=== PATIENT | male | born 1960 | race Caucasian/White ===

== ENCOUNTER 2018-01-27 06:10 | Day surgery (SDC) | payer OTHER ==
[~2018-01-27] VITALS: Ht 198.1 cm; Wt 105.4 kg
[~2018-01-27 06:10] MED LIST: AMIT75 PO; ASPI325 PO; ASPI81CH PO; ATOR20 PO; ATOR40TA PO; BISA5EC PO; CHLO25B PO; CLOP75 PO; FISH1000 PO; GLIP5 PO; LAVAP17G PO; LISI20 PO; LISI5 PO; LISINOPRIL PO; METF500 PO; METF850 PO; METO10 PO; METO100ER PO; NITR.4SL SL; RANI150 PO; ROSU10TA PO; [UNRECOGNIZED DRUG - CODE]
== END 2018-01-27 12:30 | disposition home or self-care (01) ==
LOC: ORSCSDS 06:10
PROVIDERS: Orthopaedic Surgery
PROC: 0RBK4ZZ Excision of Left Shoulder Joint, Percutaneous Endoscopic Approach (ICD-10-PCS; principal; 2018-01-27 07:30)
PROC: 0RNK4ZZ Release Left Shoulder Joint, Percutaneous Endoscopic Approach (ICD-10-PCS; principal; 2018-01-27 07:30)
PROC: 0LQ24ZZ Repair Left Shoulder Tendon, Percutaneous Endoscopic Approach (ICD-10-PCS; principal; 2018-01-27 07:30)
DX: M75.32 Calcific tendinitis of left shoulder (principal); M75.42 Impingement syndrome of left shoulder; M75.02 Adhesive capsulitis of left shoulder; I10 Essential (primary) hypertension; E11.9 Type 2 diabetes mellitus without complications; G47.33 Obstructive sleep apnea (adult) (pediatric); I25.10 Atherosclerotic heart disease of native coronary artery without angina pectoris; I25.2 Old myocardial infarction; E66.01 Morbid (severe) obesity due to excess calories; Z68.37 Body mass index [BMI] 37.0-37.9, adult; Z79.899 Other long term (current) drug therapy
CPT/HCPCS: 82947; C1713; J0171; J0690; J1100; J1885; J2250; J2370; J2405; J2710; J3010; J7120

== ENCOUNTER 2020-05-02 11:41 | Day surgery (SDC) | payer BC ==
[~2020-05-02] VITALS: Ht 167.6 cm; Wt 104.1 kg
[2020-05-02] MEDS ORDERED: OMEP20ER PO (12:15)
[2020-05-02] MEDS ORDERED: Aspir 8181 MG PO (12:15)
[2020-05-02] MEDS ORDERED: BYDUREON B2 MG/0.81 SC (12:16)
== END 2020-05-03 13:46 | disposition home or self-care (01) ==
LOC: ORSCSDS 11:41
PROC: 0DJD8ZZ Inspection of Lower Intestinal Tract, Via Natural or Artificial Opening Endoscopic (ICD-10-PCS; principal; 2020-05-03)
DX: Z12.11 Encounter for screening for malignant neoplasm of colon (principal); K57.30 Diverticulosis of large intestine without perforation or abscess without bleeding; I25.10 Atherosclerotic heart disease of native coronary artery without angina pectoris; E66.01 Morbid (severe) obesity due to excess calories; Z68.38 Body mass index [BMI] 38.0-38.9, adult; E11.9 Type 2 diabetes mellitus without complications; I10 Essential (primary) hypertension; G47.33 Obstructive sleep apnea (adult) (pediatric); E66.9 Obesity, unspecified; Z68.37 Body mass index [BMI] 37.0-37.9, adult; Z87.891 Personal history of nicotine dependence; Z79.82 Long term (current) use of aspirin; Z79.84 Long term (current) use of oral hypoglycemic drugs; Z79.899 Other long term (current) drug therapy
CPT/HCPCS: 82947; 86803; J2704; J7120

== ENCOUNTER → 2024-10-24 | Outpatient (CLI) | payer MEDICARE ==
[~2024-10-24] MED LIST changes: +Aspir 8181 MG PO; +BYDUREON B2 MG/0.81 SC; +LABE200 PO; +OMEP20ER PO; +TRULICITY1.5 MG/0.1 SC
[2024-10-29 00:25] LABS: ALDOSTERONE, URINE 7.2 ug/d (1.2-28.1)
== END | disposition home or self-care (01) ==
LOC: LAB 07:42 → LAB SHORT 07:42
PROVIDERS: Internal Medicine Endocrinology, Diabetes & Metabolism
DX: E26.9 Hyperaldosteronism, unspecified (principal)
CPT/HCPCS: 82088; 82570; 84300

== ENCOUNTER 2024-10-31 18:37 | Observation (INO) | payer MEDICARE ==
[~2024-10-31] VITALS: Ht 167.6 cm; Wt 95.9 kg
[~2024-10-31 18:37] MED LIST changes: -LABE200 PO; -TRULICITY1.5 MG/0.1 SC
[2024-10-31 19:06] LABS: BASOPHILS ABSOLUTE AUTO 0.02 K/mm3 (0.00-0.23); BASOPHILS PERCENT AUTO 0 % (0-2); EOSINOPHILS ABSOLUTE AUTO 0.12 K/mm3 (0.00-0.68); EOSINOPHILS PERCENT AUTO 2 % (0-6); Hemoglobin 13.8 g/dL (13.5-17.5); IMMATURE GRAN ABSOLUTE AUTO 0.01 K/mm3 (0.00-0.10); IMMATURE GRAN PERCENT AUTO 0 % (0-1); LYMPHOCYTES ABSOLUTE AUTO 2.13 K/mm3 (0.84-5.20); LYMPHOCYTES PERCENT AUTO 33 % (21-46); MONOCYTES ABSOLUTE AUTO 0.38 K/mm3 (0.16-1.47); MONOCYTES PERCENT AUTO 6 % (4-13); Mean Corpuscular HGB 28.3 pg (26.0-34.0); Mean Corpuscular HGB Conc 33.7 g/dL (31.5-36.5); Mean Corpuscular Volume 84 fL (80-100); NEUTROPHILS ABSOLUTE AUTO 3.82 K/mm3 (1.96-9.15); NEUTROPHILS PERCENT AUTO 59 % (41-73); Platelet Count 214 K/mm3 (150-400); RDW Coefficient Variation 12.5 % (11.7-14.2); RDW Standard Deviation 38.1 fL (35.1-46.3); Red Blood Cell Count 4.88 M/mm3 (4.30-5.90); White Blood Cell Count 6.48 K/mm3 (4.00-11.30)
[2024-10-31 19:29] LABS: Albumin, Blood 3.5 g/dL (3.4-5.0); Bilirubin, Total 1.1 mg/dL (0.1-1.0); Bun/Creatinine Ratio 15.6 (12.0-20.0); Calcium, Blood 9.3 mg/dL (8.5-10.1); Creatinine, Blood 0.9 mg/dL (0.60-1.20); Globulin, Blood 3.5 g/dL (2.2-4.0)
[2024-10-31] MEDS ORDERED: FLU VACC TS2024-25(6MOS UP)/PF 45 MCG/0.5 ML SYRINGE IM ONE (23:50)
[2024-10-31] MEDS ORDERED: Aspirin 325 MG Tab PO ONE (23:55)
[2024-10-31] MEDS ORDERED: Clopidogrel Bisulfate 300 MG Cap PO ONE (23:55)
[2024-11-01] VITALS (8 sets, daily range): BP systolic 148–168; BP diastolic 79–100
[2024-11-01] MEDS ORDERED: Lactated Ringer's 1,000 ML IV SCH (00:15)
[2024-11-01 00:44] LABS: CHOL/HDL RATIO 3.2; Cholesterol 121 mg/dL (50-200); HDL Cholesterol 38 mg/dL (>39); LDL/HDL RATIO 1.5; Low Density Lipoprotein Chol 56 mg/dL (0-110); Triglycerides 137 mg/dL (30-160); Very Low Density Lipoprot Chol 27 mg/dL (6-32)
[2024-11-01] MEDS ORDERED: Heparin Sodium,Porcine/0.5 NS 500 ML IV SCH (01:25)
[2024-11-01] MEDS ORDERED: Heparin Sodium 5000 Units/ML 1ML MDV IV ONE (01:25)
[2024-11-01 01:27] LABS: Anti-Xa UFH, PHA Monitoring <0.10 IU/mL
[2024-11-01] MEDS ORDERED: Nitroglycerin 0.4 MG SUBL SL PRN (03:50)
[2024-11-01 04:40] LABS: BASOPHILS ABSOLUTE AUTO 0.02 K/mm3 (0.00-0.23); BASOPHILS PERCENT AUTO 0 % (0-2); EOSINOPHILS ABSOLUTE AUTO 0.12 K/mm3 (0.00-0.68); EOSINOPHILS PERCENT AUTO 2 % (0-6); Hematocrit 42.4 % (37.0-53.0); Hemoglobin 14.4 g/dL (13.5-17.5); IMMATURE GRAN ABSOLUTE AUTO 0.02 K/mm3 (0.00-0.10); IMMATURE GRAN PERCENT AUTO 0 % (0-1); LYMPHOCYTES ABSOLUTE AUTO 2.62 K/mm3 (0.84-5.20); LYMPHOCYTES PERCENT AUTO 32 % (21-46); MONOCYTES ABSOLUTE AUTO 0.52 K/mm3 (0.16-1.47); MONOCYTES PERCENT AUTO 6 % (4-13); Mean Corpuscular Volume 83 fL (80-100); Mean Platelet Volume 9.3 fL (9.1-12.4); NEUTROPHILS ABSOLUTE AUTO 4.79 K/mm3 (1.96-9.15); NEUTROPHILS PERCENT AUTO 59 % (41-73); Platelet Count 226 K/mm3 (150-400); RDW Coefficient Variation 12.3 % (11.7-14.2); RDW Standard Deviation 37.2 fL (35.1-46.3); Red Blood Cell Count 5.14 M/mm3 (4.30-5.90); White Blood Cell Count 8.09 K/mm3 (4.00-11.30)
[2024-11-01 05:06] LABS: Albumin, Blood 3.8 g/dL (3.4-5.0); Albumin/Globulin Ratio 1.2 (0.8-1.8); Bilirubin, Total 1.5 mg/dL (0.1-1.0); Bun/Creatinine Ratio 11.2 (12.0-20.0); Calcium, Blood 9.4 mg/dL (8.5-10.1); Creatinine, Blood 0.89 mg/dL (0.60-1.20); Globulin, Blood 3.3 g/dL (2.2-4.0); Potassium, Blood 3.6 mmol/L (3.5-5.5); Total Protein, Blood 7.1 g/dL (6.4-8.2)
[2024-11-01] MEDS ORDERED: Insulin Regular 100 UNIT/ML 10ML Vial SC SCH ×2 (06:00→11:30)
[2024-11-01] MEDS ORDERED: FentaNYL Citrate 50 MCG/ML 2 ML Injection ONE (08:18)
[2024-11-01] MEDS ORDERED: Tirofiban HCL Monohydrate 3.75 MG/15 ML Vial ONE (08:18)
[2024-11-01] MEDS ORDERED: NS 1,000 ML IV ONE ×3 (08:18→10:32)
[2024-11-01] MEDS ORDERED: Midazolam HCl 1MG / ML 2ML Vial ONE (08:18)
--- NOTE | 2024-11-01 08:48 | NUR ---
PCU ADMIT / GONE TO RECORDS AND INFORMATION MANAGER PT BROUGHT TO PCU-3 BY DION FROM ER @ 0826 W/ HEPARIN GTT INFUSING PER ORDERS. PT A&O X4, ABLE TO STAND & INDEPENDENTLY AMBULATE FROM [facility] TO PCU BED. TELEMETRY PLACED & PT AMBULATED TO BATHROOM. PT DENIES HAVING EATIN ANYTHING SINCE LAST NIGHT. [facility] STAFF TO TO TAKE PT TO RECORDS AND INFORMATION MANAGER. HEPARIN GTT PLACED ON STANDBY BY HC STAFF. PHARMACY NOTIFIED. PT PLACED IN GOWN & TAKEN TO RECORDS AND INFORMATION MANAGER IN PCU BED @ 0879.
[2024-11-01] MEDS ORDERED: Atorvastatin 40 MG Tab PO SCH (09:00)
[2024-11-01] MEDS ORDERED: Aspirin 81 MG Chew PO SCH (09:00)
[2024-11-01] MEDS ORDERED: Lisinopril 20 MG Tab PO SCH (09:00)
[2024-11-01] MEDS ORDERED: Metoprolol Succinate 50 MG TABCR PO SCH (09:00)
[2024-11-01] MEDS ORDERED: Clopidogrel Bisulfate 75 MG Tab PO SCH (09:00)
[2024-11-01] MEDS ORDERED: Labetalol HCL 5 MG/ML 4ML Injection (Single Dose) ONE (09:03)
[2024-11-01] MEDS ORDERED: Heparin Sodium 1000 Units/ML 10ML MDV ONE ×2 (09:17→10:32)
[2024-11-01] MEDS ORDERED: Clopidogrel Bisulfate 300 MG Cap ONE (10:13)
[2024-11-01] MEDS ORDERED: NS 1,000 ML IV SCH (10:25)
[2024-11-01] MEDS ORDERED: NS 250 ML IV ONE (10:32)
[2024-11-01] MEDS ORDERED: Verapamil HCL 2.5 MG/ML 2ML Injection ONE (10:32)
[2024-11-01] MEDS ORDERED: Nitroglycerin 2 MG/20 ML BTL ONE (10:33)
--- NOTE | 2024-11-01 10:45 | NUR ---
BACK FROM APPLICATION DEVELOPMENT CONSULTANT PT BACK TO RM AFTER ANGIOGRAM. R RADIAL ACCESS SITE W/ TRB & ARM BOARD IN PLACE. SITE WNL. PT A&O X4. VSS. SPO2 > 92% ON RA. MONITOR SHOWING SR, HR 60s. HEPARIN GTT DCd.
[2024-11-01] MEDS ORDERED: TRULICITY1.5 MG/0.1 SC (11:15)
--- NOTE | 2024-11-01 13:14 | NUR ---
1040-TRANSFER OF CARE NOTE. PT TRANSFERED FROM [facility] TO PCU 3 AT 1040. PT AWAKE AND ALERT, DENIES COMPLAINTS S/P CORONARY ANGIOGRAM WITH INTERVENTION. BEDSIDE REPORT GIVEN. TR SEMAJ SITE REVIEWED W PRIMARY RN, SITE WNL.
--- NOTE | 2024-11-01 18:58 | NUR ---
END OF SHIFT PT A&O X4. VSS. SPO2 > 92% ON RA. MONITOR SHOWING NSR. R RADIAL ACCESS SITE TRB RECOVERED WNL. TRANSPARENT DRESSING & ARM BOARD IN PLACE.
[2024-11-01] MEDS ORDERED: Acetaminophen 325 MG TABLET PO ONE (19:35)
[2024-11-01] MEDS ORDERED: Labetalol HCL 100 MG TAB PO SCH (21:00)
[2024-11-02 00:29] VITALS: BP 162/99
[2024-11-02 04:00] VITALS: BP 131/71
[2024-11-02 05:20] LABS: BASOPHILS ABSOLUTE AUTO 0.02 K/mm3 (0.00-0.23); BASOPHILS PERCENT AUTO 0 % (0-2); EOSINOPHILS ABSOLUTE AUTO 0.09 K/mm3 (0.00-0.68); EOSINOPHILS PERCENT AUTO 2 % (0-6); Hematocrit 37.7 % (37.0-53.0); Hemoglobin 12.7 g/dL (13.5-17.5); IMMATURE GRAN ABSOLUTE AUTO 0.01 K/mm3 (0.00-0.10); IMMATURE GRAN PERCENT AUTO 0 % (0-1); LYMPHOCYTES ABSOLUTE AUTO 1.86 K/mm3 (0.84-5.20); LYMPHOCYTES PERCENT AUTO 31 % (21-46); MONOCYTES ABSOLUTE AUTO 0.46 K/mm3 (0.16-1.47); MONOCYTES PERCENT AUTO 8 % (4-13); Mean Corpuscular HGB Conc 33.7 g/dL (31.5-36.5); Mean Corpuscular Volume 83 fL (80-100); Mean Platelet Volume 9.5 fL (9.1-12.4); NEUTROPHILS PERCENT AUTO 60 % (41-73); Platelet Count 180 K/mm3 (150-400); RDW Coefficient Variation 12.6 % (11.7-14.2); RDW Standard Deviation 38.1 fL (35.1-46.3); Red Blood Cell Count 4.53 M/mm3 (4.30-5.90); White Blood Cell Count 6.04 K/mm3 (4.00-11.30)
[2024-11-02 05:43] LABS: Bun/Creatinine Ratio 13.9 (12.0-20.0); Calcium, Blood 8.9 mg/dL (8.5-10.1); Creatinine, Blood 0.93 mg/dL (0.60-1.20); Potassium, Blood 3.5 mmol/L (3.5-5.5)
[2024-11-02 07:27] VITALS: BP 155/87
[2024-11-02] MEDS ORDERED: Labetalol HCL 100 MG TAB PO SCH (09:00)
[2024-11-02] MEDS ORDERED: Aspirin 81 MG Chew PO SCH (09:00)
[2024-11-02] MEDS ORDERED: Clopidogrel Bisulfate 75 MG Tab PO SCH (09:00)
[2024-11-02 12:24] VITALS: BP 135/74
[2024-11-02] MEDS ORDERED: CLOP75 PO (13:19)
[2024-11-02] MEDS ORDERED: LABE200 PO (13:19)
--- NOTE | 2024-11-02 16:56 | NUR ---
DISCHARGE SUMMARY PT A&O X4, CALM, COOPERATIVE TO CARE. SINUS RHYTHM, HR IN THE 70'S-80'S, DENIES CP/PRESSURE, NUMB/TINGLING, SBP ELEVATED MEDICATED PER EMAR. O2 >92% ON RA, DENIES SOB. CPAP FOR NOC AT BEDSIDE. R RADIAL SITE WITH TEGADERM IN PLACE. NO BLEEDING, BRUISING OR HEMATOMA PRESENT. ARMBOARD IN PLACE. D/C ORDERES FOR PT RECEIVED. REVIEWED D/C INSTRUCTIONS WITH PT. PT DENIES ANY QUESTIONS OR CONCERNS. IVS REMOVED, DRESSED WITH COBAN AND GAUZE, PT TOLERATED WELL. PT LEFT VIA WHEELCHAIR WITH PCT.
== END 2024-11-02 14:56 | disposition home or self-care (01) ==
LOC: ER 18:37 → ERHOLD 18:38 → PCU 11-01 08:21
PROVIDERS: Family Medicine; Physician Assistant; Student in an Organized Health Care Education/Training Program; ADMIT Internal Medicine
DX: I25.110 Atherosclerotic heart disease of native coronary artery with unstable angina pectoris (principal); I21.4 Non-ST elevation (NSTEMI) myocardial infarction; I25.2 Old myocardial infarction; E11.9 Type 2 diabetes mellitus without complications; I10 Essential (primary) hypertension; E78.5 Hyperlipidemia, unspecified; G47.33 Obstructive sleep apnea (adult) (pediatric); Z95.5 Presence of coronary angioplasty implant and graft; Z79.82 Long term (current) use of aspirin; Z79.84 Long term (current) use of oral hypoglycemic drugs; Z79.899 Other long term (current) drug therapy
CPT/HCPCS: 36415; 71046; 76937; 80048; 80053; 80061; 82947; 84443; 84484; 85025; 85347; 85520; 85730; 93005; 93010; 93454; 94762; 96365-59; 96366-59; 99152; 99153; 99285-25; A9270; C1725; C1769; C1874; C1887; C1894; C9600; G0378; J1644; J1815; J2250; J3010; J3246; J7030; J7050; Q9967

== ENCOUNTER → 2024-10-31 | Outpatient (CLI) | payer MEDICARE ==
[2024-10-31 17:32] LABS: BASOPHILS ABSOLUTE AUTO 0.02 K/mm3 (0.00-0.23); BASOPHILS PERCENT AUTO 0 % (0-2); EOSINOPHILS ABSOLUTE AUTO 0.11 K/mm3 (0.00-0.68); EOSINOPHILS PERCENT AUTO 2 % (0-6); Hematocrit 42.7 % (37.0-53.0); Hemoglobin 14.5 g/dL (13.5-17.5); IMMATURE GRAN ABSOLUTE AUTO 0.01 K/mm3 (0.00-0.10); IMMATURE GRAN PERCENT AUTO 0 % (0-1); LYMPHOCYTES ABSOLUTE AUTO 1.68 K/mm3 (0.84-5.20); LYMPHOCYTES PERCENT AUTO 30 % (21-46); MONOCYTES ABSOLUTE AUTO 0.32 K/mm3 (0.16-1.47); MONOCYTES PERCENT AUTO 6 % (4-13); Mean Corpuscular HGB 28.1 pg (26.0-34.0); Mean Corpuscular Volume 83 fL (80-100); Mean Platelet Volume 9.7 fL (9.1-12.4); NEUTROPHILS ABSOLUTE AUTO 3.44 K/mm3 (1.96-9.15); NEUTROPHILS PERCENT AUTO 62 % (41-73); Platelet Count 216 K/mm3 (150-400); RDW Coefficient Variation 12.6 % (11.7-14.2); RDW Standard Deviation 37.8 fL (35.1-46.3); Red Blood Cell Count 5.16 M/mm3 (4.30-5.90); White Blood Cell Count 5.58 K/mm3 (4.00-11.30)
[2024-10-31 17:46] LABS: Albumin, Blood 3.9 g/dL (3.4-5.0); Albumin/Globulin Ratio 1.1 (0.8-1.8); Bilirubin, Total 1.1 mg/dL (0.1-1.0); Bun/Creatinine Ratio 10.8 (12.0-20.0); Creatinine, Blood 1.11 mg/dL (0.60-1.20); Globulin, Blood 3.5 g/dL (2.2-4.0); Potassium, Blood 3.7 mmol/L (3.5-5.5); Total Protein, Blood 7.4 g/dL (6.4-8.2)
== END ==
LOC: LAB SHORT 17:25 → LAB 17:25
PROVIDERS: Family Medicine
DX: R07.9 Chest pain, unspecified (principal)
CPT/HCPCS: 80053; 84484; 85025